=== PATIENT | female | born 1995 | race African-American/Black ===

== ENCOUNTER 2024-04-30 21:25 | Emergency (ER) | payer MEDICAID, OTHER ==
[~2024-04-30] VITALS: Ht 162.6 cm; Wt 127.0 kg
[2024-04-30] MEDS: ACETAMINOPHEN 1000MG/100ML 100 ML IV ONE (05:15)
[2024-04-30 21:29] VITALS: O2SAT 98
[2024-04-30 22:24] LABS: BASOPHILS % 0.4 % (0.0-2.0); EOSINOPHILS % 0.5 % (0.0-5.0); HEMOGLOBIN. 13.9 g/dL (12.0-16.0); LYMPHOCYTES % 11.5 % (20.0-50.0); MEAN CORPUSCULAR HEMOGLOBIN 32.5 pg (28.0-32.0); MEAN CORPUSCULAR VOLUME 95.8 fL (81.0-99.0); MEAN PLATELET VOLUME 9.3 fl (7.4-10.4); NEUTROPHILS % 80.6 % (40.0-76.0); PLATELET 281 x1000/uL (130-400); RED BLOOD CELL COUNT 4.28 mill/uL (4.2-5.4); RED CELL DISTRIBUTION WIDTH 12.6 % (11.6-14.6); WHITE BLOOD COUNT 11.3 x1000/uL (4.5-11.0)
[2024-04-30 22:37] LABS: CHLORIDE 99 mEq/L (98-107); HCG SCREEN NEGATIVE; SODIUM 135 mEq/L (136-145)
[2024-04-30 22:38] LABS: CALCIUM 9.8 mg/dL (8.7-10.4); CARBON DIOXIDE 28 mEq/L (21-32)
[2024-04-30 22:43] LABS: GLUCOSE 178 mg/dL (70-105); UREA NITROGEN BLOOD 9 mg/dL (9-23)
[2024-04-30 22:45] LABS: ALANINE AMINOTRANSFERASE 16 IU/L (10-49); ALBUMIN 4.4 g/dL (3.2-4.8); ASPARTATE AMINOTRANSFERASE 18 IU/L (<34); BILIRUBIN DIRECT 0.4 mg/dL (<=3.0); BILIRUBIN TOTAL 1.1 mg/dL (0.1-1.0); PROTEIN TOTAL 7.6 g/dL (6.0-8.3)
[2024-05-01] MEDS: MAGNESIUM/ALUMINUM HYDROXIDE/SIMETHICONE 30ML UDC PO STA (03:18)
[2024-05-01] MEDS: MAGNESIUM/ALUMINUM HYDROXIDE/SIMETHICONE 30ML UDC PO NR (04:43)
[2024-05-01] MEDS: ONDANSETRON HCL 4MG/2ML INJ IV STA (04:43)
[2024-05-01] MEDS: SODIUM CHLORIDE 0.9% 1,000 ML IV ONE (05:04)
[2024-05-01] MEDS: ONDANSETRON HCL 4MG/2ML INJ IV NR (05:15)
[2024-05-01] MEDS ORDERED: ONDA4TAB50 MT (05:31)
[2024-05-01] MEDS ORDERED: ACET-2708 MT (05:31)
[2024-05-01] MEDS ORDERED: IOHEXOL-300 100 ML BOTTLE ONE (06:10)
[2024-05-01] MEDS ORDERED: IPRATROPIUM/ALBUTEROL 0.5-3(2.5)MG/3ML NEB HHN PRN (10:15)
[2024-05-01] MEDS ORDERED: PANTOPRAZOLE SODIUM 40 MG/VIAL IV SCH (10:15)
[2024-05-01] MEDS ORDERED: SODIUM CHLORIDE 0.9% 1,000 ML IV SCH (10:15)
[2024-05-01] MEDS ORDERED: ONDANSETRON HCL 4MG/2ML INJ IV PRN (10:15)
[2024-05-01] MEDS ORDERED: HYDRALAZINE 20MG/ML VIAL IV PRN (10:15)
[2024-05-01 11:00] LABS: T4 FREE 1.3 ng/dL (0.89-1.76); THYROID STIMULATING HORMONE 0.49 uIU/mL (0.55-4.78)
[2024-05-01] MEDS ORDERED: PIPERACILLIN/TAZO 3.375G/50ML 50 ML IV SCH (11:00)
[2024-05-01 11:31] VITALS: BP 126/63; PULSE 93; RESP 20; TEMP 37.11408; O2SAT 98
== END 2024-05-01 11:50 | disposition short-term general hospital (02) ==
LOC: ER 21:25 → EDBEDREQTM 05-01 09:05 → EDBEDREQ 05-01 09:05 → ER 05-01 11:50
DX: R10.84 Generalized abdominal pain (principal); R11.2 Nausea with vomiting, unspecified; Z79.899 Other long term (current) drug therapy; Z87.19 Personal history of other diseases of the digestive system; Z87.440 Personal history of urinary (tract) infections; Z98.891 History of uterine scar from previous surgery
CPT/HCPCS: 80076; 80048; 80320; 84703; 83690; 85025; 36415 ×2; 96365; 96366; 99285; 82550; 84439; 84480; 83605; 84443; 87040; 84145; 71045; 74018; 74177; 96375; J7030; Q9967; J2405; Z7610; G0480; J0131